=== PATIENT | female | born 1980 | race Caucasian/White ===

== ENCOUNTER 2023-10-13 10:07 | Outpatient (CLI) | payer BC, SELFPAY ==
--- NOTE | ~2023-10-13 | US_ITS ---
EXAMINATION: US pelvic complete w TV DATE: 10/13/2023 10:34 INDICATION: Abnormal uterine bleeding. TECHNIQUE: Multiple transabdominal and transvaginal sonographic images of the pelvis were obtained. COMPARISON: Ultrasound 12/16/2018, radiograph 01/30/2019 FINDINGS: TRANSABDOMINAL ULTRASOUND: The uterus measures 7.5 x 4.9 x 3.8 cm. There is no free fluid in the pelvis. TRANSVAGINAL ULTRASOUND: The endometrial complex measures 8 mm in thickness. There is a 10 mm mass with low-level echoes and i ncreased through transmission in the cervix, likely a nabothian cyst with hemorrhage. The right ovary is not visualized. The left ovary measures 1.7 x 2.4 x 2.2 cm. Again seen is a 5 mm linear echogenic mass adjacent to the uterus. IMPRESSION: 1. 5 mm linear echogenic mass adjacent to the uterus again seen, likely an intraperitoneal or subsero annita retained part of an intrauterine device. Reviewed, dictated and finalized at location A. IMPRESSION: 1. 5 mm linear echogenic mass adjacent to the uterus again seen, likely an intr aperitoneal or subserosal retained part of an intrauterine device.
== END 2023-10-13 10:08 ==
PROVIDERS: PCP Obstetrics & Gynecology Gynecology; Visit Provider Advanced Practice Midwife
DX: N93.8 Other specified abnormal uterine and vaginal bleeding (principal)
CPT/HCPCS: 76830; 76856

== ENCOUNTER 2024-05-16 08:34 | Emergency (ER) | payer OTHER, SELFPAY ==
--- NOTE | ~2024-05-16 | XR_ITS ---
EXAMINATION: XR abdomen/kub 1V DATE: 05/16/2024 09:37 INDICATION: Right flank pain TECHNIQUE: A supine view of the abdomen on 2 radiographs was obtained. COMPARISON: 01/30/2019 FINDINGS: Moderate amount of gas scattered throughout the colon and multiple loops of nondilated small bowel. T iny phleboliths in the right hemipelvis. There are couple additional small densities in the left and right pelvis which could represent additional phleboliths, distal ureteral stones or tubal ligation r ings. IUD projects of the central pelvis. Lung bases are clear. Heart size is normal. Bones are unrem arkable. IMPRESSION: 1. A couple small densities in the pelvis along either side of an IUD which could represent additiona l phleboliths, distal ureteral stones or tubal ligation rings. Reviewed, dictated and finalized at location B. LOPMENT MANAGER IMPRESSION: 1. A couple small densities in the pelvis along either side of an IUD which cou ld represent additional phleboliths, distal ureteral stones or tubal ligation r ings.
[2024-05-16 08:46] VITALS: BP 130/93; PULSE 98; RESP 16; TEMP 36.7; O2SAT 97
--- NOTE | 2024-05-16 08:53 | ED.FEMALEGU ---
HPI - Female Genitourinary General Chief complaint: Nausea/Vomiting/Diarrhea Stated complaint: Vomiting/Diarrhea/Back Pain Time Seen by Provider: 05/16/24 08:56 Source: patient and RN notes reviewed Mode of arrival: ambulatory Limitations: no limitations History of Present Illness HPI Narrative: 44-year-old female presents with concern for right flank pain that radiates down to the right buttock and across the right lower abdomen. She reports symptoms started yesterday along with vomiting and a fever up to 104. She reports she has had diarrhea for about 3 weeks in the diarrhea continues. She reports history of interstitial cystitis. Other than her usual symptoms with that she denies any new dysuria, frequency, urgency, hematuria. She reports pain is not always dependent on movement and can happen randomly. She denies any loss of bowel or bladder function, weakness in any extremity, perianal anesthesia. MD elicited complaint: UTI Related Data Home Medications ?Medication ?Instructions ?Recorded ?Confirmed ?Last Taken ?Type amitriptyline 10 mg tablet mg 05/16/24 Unknown History Allergies Allergy/AdvReac Type Severity Reaction Status Date / Time azithromycin AdvReac Mild Nausea Verified 05/16/24 08:58 Review of Systems Review of Systems: CONSTITUTIONAL: Reports fever. CARDIOVASCULAR: Denies chest pain, palpitations, or edema. RESPIRATORY: Denies cough or dyspnea. GASTROINTESTINAL: Reports right lower abdominal pain, nausea, vomiting, diarrhea GENITOURINARY: Denies dysuria, frequency, urgency, suprapubic pressure. Denies flank pain or hematuria. SKIN: Denies rash or itching. MUSCULOSKELETAL: Reports right lower back and flank pain All systems reviewed & are unremarkable except as noted in HPI and below [facility] Past Medical History Medical History (Updated 05/16/24 @ 10:22 by Trinity Guevara NP) History of benign breast biopsy fibroadenoma 2004,2015 Asthma Interstitial cystitis Anxiety and depression Surgical History Surgical History (Updated 05/10/23 @ 08:35 by Glory Mckay MD) History of bilateral tubal ligation 2019 hysteroscopy and cystoscopy the same day to evaluate for missing ParaGard fragment History of loop electrical excision procedure (LEEP) 2001 History of elective 1999, 2019 History of 2007, 2010 Family History Family History (Updated 05/02/24 @ 15:32 by Nguyen Baum CMA) Father Diabetes mellitus Heart disease Grandparent Depression Social History Social History (Updated 05/02/24 @ 15:42 by Nguyen Baum [facility]) Smoking packs per day: 0.5 Smoking cigarettes per day: 10.0 Years smoked: 6 Smoking pack-years: 3.00 Smoking status: Former smoker Tobacco type: cigarettes Smoking end date: 04/19/19 Alcohol intake: current Drinks per week: 10 Substance use: never Substance use type: does not use Do You Feel Safe in your Home?: Yes Lack of Transportation: No Lack of Food: Never True Current Housing: I Have Housing Concerned About Future Housing: No Difficulty Paying Gas/Electric Bills: No Difficulty Paying for Meds: No Currently Unemployed: No Education: Bachelor's Degree Difficulty w/ Childcare or Family Care: No Living arrangements: with family Occupation/Education: occupation Gender identity (if verbalized by the patient): Female Sexual Orientation (if Verbalized by the Patient): Straight or Heterosexual Spiritual care concerns: No Comments At time of signature, agree with nursing past medical, surgical, social and family history. There is no relevant family history pertinent to the presenting complaint Exam Narrative: GENERAL: Well-appearing, well-nourished, and in no acute distress. HEAD: Normocephalic, atraumatic. EYES: PERRLA and EOMI. NECK: Supple. No lymphadenopathy. CHEST: Clear to auscultation. No respiratory distress. HEART: Regular rate and rhythm. Distal pulses palpable and equal, cap refill <3 seconds ABDOMEN: Soft, nontender, nondistended, normal active bowel sounds, no palpable or pulsatile masses. Right CVA tenderness MUSCULOSKELETAL: Normal range of motion and strength in all extremities; 5/5 strength with hip flexion and extension, dorsiflexion and extension, knee flexion and extension, plantar flexion and extension. Normal sensation in dermatomal distributions with sensitivity to light touch and pain. No midline back tenderness to palpation. No paraspinal tenderness. Transfers from sitting to standing. SKIN: Warm, dry, no rash. No ecchymosis, erythema, open wounds to back. NEURO: No focal deficits. Alert and oriented x3. Normal gait. PSYCH: Normal mood and affect Course Course Emergency Course: Exam findings and x-ray findings were discussed with patient. I advised further evaluation in the ER for her symptoms. Patient states that she would rather go to her urologist to she can get into today. I advised her if her symptoms change or worsen in the meantime she needs go to the emergency room. Anticipatory guidance given. Patient agrees to follow-up as directed and is aware of reasons to seek care at the emergency department. Portions of this record may have been created with voice recognition software Level of Care: Express Care Visit Vital Signs Vital signs: Vital Signs Temperature 98.1 F 05/16/24 08:46 Pulse Rate 98 05/16/24 08:46 Respiratory Rate 16 05/16/24 08:46 Blood Pressure 130/93 H 05/16/24 08:46 Pulse Oximetry 97 05/16/24 08:46 Temperature 98.1 F 05/16/24 08:46 Pulse Rate 98 05/16/24 08:46 Respiratory Rate 16 05/16/24 08:46 Blood Pressure 130/93 H 05/16/24 08:46 Pulse Oximetry 97 05/16/24 08:46 Reviewed. MDM - Female Genitourinary MDM Narrative Medical decision making narrative: Exam findings and UA show no acute concerns or changes; patient is non-toxic appearing and is in no distress. Patient is appropriate for outpatient treatment and follow-up. Differential Diagnosis Differential diagnosis: Likely urinary tract infection and cystitis Imaging Data My impression: Images reviewed, interpreted by radiologist, agree, see report. Radiologist's impression: EXAMINATION: XR abdomen/kub 1V DATE: 05/16/2024 09:37 INDICATION: Right flank pain TECHNIQUE: A supine view of the abdomen on 2 radiographs was obtained. COMPARISON: 01/30/2019 FINDINGS: Moderate amount of gas scattered throughout the colon and multiple loops of nondilated small bowel. Tiny phleboliths in the right hemipelvis. There are couple additional small densities in the left and right pelvis which could represent additional phleboliths, distal ureteral stones or tubal ligation rings. IUD projects of the central pelvis. Lung bases are clear. Heart size is normal. Bones are unremarkable. IMPRESSION: 1. A couple small densities in the pelvis along either side of an IUD which could represent additional phleboliths, distal ureteral stones or tubal ligation rings. Critical Care Time Critical Care Time Critical Care Time: No Discharge Plan Discharge Clinical Impression: Acute flank pain Patient Disposition: Home, Self-Care Condition: Stable Instructions: Flank Pain (ED) Additional Instructions: 1) Please follow-up with your urologist or primary care doctor, call today for an appointment. 2) If you have any worsening of symptoms or any other urgent concerns please go to the ER. 3) Please take medications as prescribed and continue taking your home medications as usual. 4) Please read and follow information included in discharge instructions. Patient Language: [place] Prescriptions: New ondansetron 4 mg tablet,disintegrating 4 mg PO Q8H PRN (Reason: nausea and vomiting) Qty: 10 0RF No Action amitriptyline 10 mg tablet Follow-up/Referrals: Yady,JIAN Aguilar [Primary Care Provider] - Time of Disposition: 10:22
[2024-05-16 09:10] LABS: EDUAAPPEAR Clear; EDUABILI Negative (Negative); EDUABLOOD Trace (Negative); EDUACOLOR1 Yellow; EDUAGLUCOSE Negative (Negative); EDUAKETONE 1+ (Negative); EDUALEUKO Trace (Negative); EDUANITRATE Negative (Negative); EDUAPH 8.5; EDUAPROTEIN 2+ (Negative); EDUASPGRAVITY 1.015
== END 2024-05-16 10:30 | disposition home or self-care (01) ==
PROVIDERS: Emergency Provider Nurse Practitioner; PCP Nurse Practitioner
DX: R10.9 Unspecified abdominal pain (principal); Z97.5 Presence of (intrauterine) contraceptive device; N30.10 Interstitial cystitis (chronic) without hematuria; J45.909 Unspecified asthma, uncomplicated; F32.A Depression, unspecified; Z87.891 Personal history of nicotine dependence
CPT/HCPCS: 74018; 81003; 99213; G0463